=== PATIENT | female | born 1985 | race Caucasian/White ===

== ENCOUNTER 2017-03-06 04:09 | Inpatient (IN) | payer BC ==
[~2017-03-06 04:09] MED LIST: PRENATAL-U CAPS1 CAP PO
[2017-03-06] MEDS ORDERED: COZAAR50 M1 PO (05:05)
[2017-03-06 05:56] LABS: EOS % 0.1 % (0-7); HCT-HEMATOCRIT 34.1 % (34.0-49.0); HGB-HEMOGLOBIN 11.9 gm/dl (12.0-15.5); IMMATURE GRANULOCYTES ABSOLUTE 0.28 tho/cmm (0-0.03); IMMATURE GRANULOCYTES PERCENT 0.9 % (0-0.3); LYMPH % 1.5 % (20-45); LYMPH ABSOLUTE COUNT 0.5 tho/cmm (0.8-4.5); MCH (MEAN CORPUSCULAR HGB) 29.8 pg (28.0-32.0); MCHC MEAN CORPUSCULAR HGB CONC 34.9 % (32.0-36.0); MCV (MEAN CELL VOLUME) 85.3 fl (82.0-96.0); MEAN PLATELET VOLUME 9.7 cmc (9.4-12.4); MONO % 1.6 % (0-12); MONOCYTE ABSOLUTE COUNT 0.5 tho/cmm (0.0-1.2); NEUTROPHIL ABSOLUTE COUNT 29.9 tho/cmm (1.6-8.0); NEUTROPHIL-AUTOMATED 29.9 tho/cmm (1.6-8.0); NEUTROPHILS % 95.9 % (40-80); PLATELET COUNT 326 tho/cmm (150-450); RED CELL DISTRIBUTION WIDTH 12.8 % (12.4-16.4); WHITE BLOOD COUNT 31.2 tho/cmm (4.0-10.0)
[2017-03-06 06:07] LABS: INR 1.2 INR (0.9-1.1); PROTHROMBIN TIME 13.9 SECONDS (9.0-13.6)
[2017-03-06 06:09] LABS: ALB/GLOB RATIO 0.9 (0.8-2.0); ALBUMIN 3.1 g/dl (3.5-5.0); ALKALINE PHOSPHATASE 78 U/L (33-138); ANION GAP 10 mmol/L (0-20); AST/SGOT 12 U/L (10-40); BILIRUBIN,TOTAL 0.4 mg/dl (0-1.5); BLOOD UREA NITROGEN 9 mg/dl (6-24); CALCIUM 8.1 mg/dl (8.5-10.5); CARBON DIOXIDE-VENOUS 24 mmol/L (22-32); CHLORIDE 111 mmol/l (96-110); CREATININE 0.67 mg/dl (0.50-1.10); GLUCOSE 154 mg/dL (70-110); PHOSPHOROUS 2.3 mg/dl (2.5-4.9); POTASSIUM 3.7 mmol/L (3.7-5.1); SODIUM 141 mmol/L (135-145); eGFR VALUE FOR BLACK >90 mL/Min
[2017-03-06 07:20] LABS: PREALBUMIN 14.4 mg/dl (20.0-40.0)
[2017-03-06 07:32] LABS: ALT/SGPT 22 U/L (12-78)
[2017-03-06 08:52] LABS: URINE BILIRUBIN NEGATIVE (NEG); URINE BLOOD NEGATIVE (NEG); URINE GLUCOSE (UA) NEGATIVE (NEG); URINE KETONE MODERATE (NEG); URINE LEUKOCYTE ESTERASE NEGATIVE (NEG); URINE NITRITE NEGATIVE (NEG); URINE PROTEIN SMALL (NEG); URINE SPECIFIC GRAVITY 1.015 (1.003-1.030)
[2017-03-06 08:53] LABS: URINE APPEARANCE CLEAR; URINE COLOR YELLOW
[2017-03-06 09:02] LABS: URINE AMORPHOUS 1+; URINE BACTERIA 1+; URINE EPITHELIAL CELLS 0-2 /[HPF] (0-10); URINE MUCUS 1+; URINE RBC 0 /[HPF] (0-5); URINE WBC 0 /[HPF] (0-5)
[2017-03-06 12:25] LABS: PROCALCITONIN 0.17 ng/ml (0.05-0.09)
[2017-03-06 17:08] LABS: BASO % 0.1 % (0-2); EOS % 1.6 % (0-7); EOSINOPHIL ABSOLUTE COUNT 0.6 tho/cmm (0.0-0.7); HCT-HEMATOCRIT 32.9 % (34.0-49.0); HGB-HEMOGLOBIN 11.6 gm/dl (12.0-15.5); IMMATURE GRANULOCYTES ABSOLUTE 0.26 tho/cmm (0-0.03); IMMATURE GRANULOCYTES PERCENT 0.7 % (0-0.3); LYMPH ABSOLUTE COUNT 1.5 tho/cmm (0.8-4.5); MCH (MEAN CORPUSCULAR HGB) 30.1 pg (28.0-32.0); MCHC MEAN CORPUSCULAR HGB CONC 35.3 % (32.0-36.0); MCV (MEAN CELL VOLUME) 85.2 fl (82.0-96.0); MEAN PLATELET VOLUME 9.5 cmc (9.4-12.4); MONO % 5.4 % (0-12); NEUTROPHIL ABSOLUTE COUNT 32.1 tho/cmm (1.6-8.0); NEUTROPHIL-AUTOMATED 32.1 tho/cmm (1.6-8.0); NEUTROPHILS % 88.2 % (40-80); PLATELET COUNT 326 tho/cmm (150-450); RED BLOOD COUNT 3.86 mil/cmm (4.00-5.20); RED CELL DISTRIBUTION WIDTH 12.8 % (12.4-16.4)
[2017-03-06 17:18] LABS: ALB/GLOB RATIO 0.9 (0.8-2.0); ALKALINE PHOSPHATASE 76 U/L (33-138); ALT/SGPT 22 U/L (12-78); ANION GAP 9 mmol/L (0-20); AST/SGOT 9 U/L (10-40); BILIRUBIN,TOTAL 0.3 mg/dl (0-1.5); BLOOD UREA NITROGEN 7 mg/dl (6-24); CALCIUM 8.2 mg/dl (8.5-10.5); CARBON DIOXIDE-VENOUS 25 mmol/L (22-32); CHLORIDE 112 mmol/l (96-110); CREATININE 0.57 mg/dl (0.50-1.10); GLUCOSE 91 mg/dL (70-110); POTASSIUM 3.4 mmol/L (3.7-5.1); SODIUM 143 mmol/L (135-145); eGFR VALUE FOR BLACK >90 mL/Min
[2017-03-06 17:27] LABS: WHITE BLOOD COUNT 36.4 tho/cmm (4.0-10.0)
[2017-03-07 04:57] LABS: BASO % 0.2 % (0-2); BASO ABSOLUTE COUNT 0.1 tho/cmm (0.0-0.2); EOS % 3.4 % (0-7); EOSINOPHIL ABSOLUTE COUNT 1.1 tho/cmm (0.0-0.7); HGB-HEMOGLOBIN 11.5 gm/dl (12.0-15.5); IMMATURE GRANULOCYTES ABSOLUTE 0.32 tho/cmm (0-0.03); LYMPH % 8.6 % (20-45); LYMPH ABSOLUTE COUNT 2.8 tho/cmm (0.8-4.5); MCH (MEAN CORPUSCULAR HGB) 29.4 pg (28.0-32.0); MCHC MEAN CORPUSCULAR HGB CONC 33.8 % (32.0-36.0); MEAN PLATELET VOLUME 9.7 cmc (9.4-12.4); MONO % 6.6 % (0-12); MONOCYTE ABSOLUTE COUNT 2.2 tho/cmm (0.0-1.2); NEUTROPHIL ABSOLUTE COUNT 26.1 tho/cmm (1.6-8.0); NEUTROPHIL-AUTOMATED 26.1 tho/cmm (1.6-8.0); NEUTROPHILS % 80.2 % (40-80); RED BLOOD COUNT 3.91 mil/cmm (4.00-5.20); RED CELL DISTRIBUTION WIDTH 13.2 % (12.4-16.4); WHITE BLOOD COUNT 32.5 tho/cmm (4.0-10.0)
[2017-03-07 05:09] LABS: ALB/GLOB RATIO 0.8 (0.8-2.0); ALBUMIN 2.6 g/dl (3.5-5.0); ALKALINE PHOSPHATASE 71 U/L (33-138); ALT/SGPT 20 U/L (12-78); BILIRUBIN,TOTAL 0.3 mg/dl (0-1.5); BLOOD UREA NITROGEN 7 mg/dl (6-24); C-REACTIVE PROTEIN 11.3 mg/dl (0-0.9); CALCIUM 7.8 mg/dl (8.5-10.5); CARBON DIOXIDE-VENOUS 23 mmol/L (22-32); CHLORIDE 111 mmol/l (96-110); CREATININE 0.65 mg/dl (0.50-1.10); GLUCOSE 87 mg/dL (70-110); PHOSPHOROUS 2.3 mg/dl (2.5-4.9); SODIUM 141 mmol/L (135-145); eGFR VALUE FOR BLACK >90 mL/Min
[2017-03-07 05:10] LABS: ANION GAP 11 mmol/L (0-20); AST/SGOT 15 U/L (10-40); POTASSIUM 3.7 mmol/L (3.7-5.1)
[2017-03-07 07:50] LABS: PLATELET COUNT 280 tho/cmm (150-450)
[2017-03-08 06:09] LABS: BASO % 0.4 % (0-2); BASO ABSOLUTE COUNT 0.1 tho/cmm (0.0-0.2); EOS % 4.1 % (0-7); EOSINOPHIL ABSOLUTE COUNT 0.7 tho/cmm (0.0-0.7); HCT-HEMATOCRIT 31.2 % (34.0-49.0); HGB-HEMOGLOBIN 10.6 gm/dl (12.0-15.5); IMMATURE GRANULOCYTES ABSOLUTE 0.37 tho/cmm (0-0.03); LYMPH % 18.2 % (20-45); LYMPH ABSOLUTE COUNT 3.3 tho/cmm (0.8-4.5); MCH (MEAN CORPUSCULAR HGB) 29.1 pg (28.0-32.0); MCV (MEAN CELL VOLUME) 85.7 fl (82.0-96.0); MEAN PLATELET VOLUME 9.3 cmc (9.4-12.4); MONO % 8.3 % (0-12); MONOCYTE ABSOLUTE COUNT 1.5 tho/cmm (0.0-1.2); NEUTROPHIL ABSOLUTE COUNT 12.2 tho/cmm (1.6-8.0); NEUTROPHIL-AUTOMATED 12.2 tho/cmm (1.6-8.0); PLATELET COUNT 307 tho/cmm (150-450); RED BLOOD COUNT 3.64 mil/cmm (4.00-5.20); WHITE BLOOD COUNT 18.2 tho/cmm (4.0-10.0)
[2017-03-08 06:25] LABS: ALB/GLOB RATIO 0.8 (0.8-2.0); ALBUMIN 2.4 g/dl (3.5-5.0); ALKALINE PHOSPHATASE 67 U/L (33-138); ALT/SGPT 22 U/L (12-78); ANION GAP 9 mmol/L (0-20); AST/SGOT 11 U/L (10-40); BILIRUBIN,TOTAL 0.3 mg/dl (0-1.5); BLOOD UREA NITROGEN 6 mg/dl (6-24); C-REACTIVE PROTEIN 10.9 mg/dl (0-0.9); CALCIUM 7.7 mg/dl (8.5-10.5); CARBON DIOXIDE-VENOUS 26 mmol/L (22-32); CHLORIDE 111 mmol/l (96-110); CREATININE 0.49 mg/dl (0.50-1.10); GLUCOSE 83 mg/dL (70-110); PHOSPHOROUS 3.2 mg/dl (2.5-4.9); POTASSIUM 3.3 mmol/L (3.7-5.1); SODIUM 143 mmol/L (135-145); eGFR VALUE FOR BLACK >90 mL/Min
[2017-03-09 06:01] LABS: BASO % 0.5 % (0-2); BASO ABSOLUTE COUNT 0.1 tho/cmm (0.0-0.2); EOS % 5.2 % (0-7); EOSINOPHIL ABSOLUTE COUNT 0.8 tho/cmm (0.0-0.7); HCT-HEMATOCRIT 30.2 % (34.0-49.0); HGB-HEMOGLOBIN 10.4 gm/dl (12.0-15.5); IMMATURE GRANULOCYTES ABSOLUTE 0.59 tho/cmm (0-0.03); IMMATURE GRANULOCYTES PERCENT 4.1 % (0-0.3); LYMPH % 30.7 % (20-45); LYMPH ABSOLUTE COUNT 4.4 tho/cmm (0.8-4.5); MCH (MEAN CORPUSCULAR HGB) 29.1 pg (28.0-32.0); MCHC MEAN CORPUSCULAR HGB CONC 34.4 % (32.0-36.0); MCV (MEAN CELL VOLUME) 84.6 fl (82.0-96.0); MEAN PLATELET VOLUME 9.2 cmc (9.4-12.4); MONOCYTE ABSOLUTE COUNT 1.2 tho/cmm (0.0-1.2); NEUTROPHIL ABSOLUTE COUNT 7.5 tho/cmm (1.6-8.0); NEUTROPHIL-AUTOMATED 7.5 tho/cmm (1.6-8.0); NEUTROPHILS % 51.5 % (40-80); PLATELET COUNT 314 tho/cmm (150-450); RED BLOOD COUNT 3.57 mil/cmm (4.00-5.20); RED CELL DISTRIBUTION WIDTH 12.7 % (12.4-16.4); WHITE BLOOD COUNT 14.5 tho/cmm (4.0-10.0)
[2017-03-09 06:21] LABS: ALB/GLOB RATIO 0.8 (0.8-2.0); ALBUMIN 2.4 g/dl (3.5-5.0); ALT/SGPT 23 U/L (12-78); ANION GAP 10 mmol/L (0-20); AST/SGOT 14 U/L (10-40); BILIRUBIN,TOTAL 0.2 mg/dl (0-1.5); BLOOD UREA NITROGEN 6 mg/dl (6-24); C-REACTIVE PROTEIN 6.7 mg/dl (0-0.9); CALCIUM 7.7 mg/dl (8.5-10.5); CARBON DIOXIDE-VENOUS 27 mmol/L (22-32); CHLORIDE 109 mmol/l (96-110); CREATININE 0.45 mg/dl (0.50-1.10); GLUCOSE 80 mg/dL (70-110); PHOSPHOROUS 3.8 mg/dl (2.5-4.9); POTASSIUM 3.6 mmol/L (3.7-5.1); SODIUM 142 mmol/L (135-145); eGFR VALUE FOR BLACK >90 mL/Min
[2017-03-09 06:22] LABS: ALKALINE PHOSPHATASE 159 U/L (33-138)
[2017-03-10 06:12] LABS: HCT-HEMATOCRIT 31.9 % (34.0-49.0); HGB-HEMOGLOBIN 10.8 gm/dl (12.0-15.5); MCHC MEAN CORPUSCULAR HGB CONC 33.9 % (32.0-36.0); MCV (MEAN CELL VOLUME) 85.8 fl (82.0-96.0); MEAN PLATELET VOLUME 9.2 cmc (9.4-12.4); NEUTROPHIL-AUTOMATED 5.1 tho/cmm (1.6-8.0); PLATELET COUNT 325 tho/cmm (150-450); RED BLOOD COUNT 3.72 mil/cmm (4.00-5.20); RED CELL DISTRIBUTION WIDTH 12.7 % (12.4-16.4); WHITE BLOOD COUNT 12.3 tho/cmm (4.0-10.0)
[2017-03-10 06:15] LABS: ALB/GLOB RATIO 0.8 (0.8-2.0); ALBUMIN 2.6 g/dl (3.5-5.0); ALKALINE PHOSPHATASE 75 U/L (33-138); ALT/SGPT 52 U/L (12-78); ANION GAP 11 mmol/L (0-20); AST/SGOT 46 U/L (10-40); BILIRUBIN,TOTAL 0.2 mg/dl (0-1.5); BLOOD UREA NITROGEN 5 mg/dl (6-24); CALCIUM 8.1 mg/dl (8.5-10.5); CARBON DIOXIDE-VENOUS 29 mmol/L (22-32); CHLORIDE 108 mmol/l (96-110); GLUCOSE 81 mg/dL (70-110); POTASSIUM 3.6 mmol/L (3.7-5.1); SODIUM 144 mmol/L (135-145); eGFR VALUE FOR BLACK >90 mL/Min
[2017-03-10 08:34] LABS: BAND % 3 % (0-20); BAND ABSOLUTE COUNT 0.4 tho/cmm (0-2.0); EOSINOPHIL % 4 % (0-7); WBC MORPHOLOGY VARIANT LYMPHS
[2017-03-11 06:42] LABS: HCT-HEMATOCRIT 32.5 % (34.0-49.0); HGB-HEMOGLOBIN 11.1 gm/dl (12.0-15.5); MCH (MEAN CORPUSCULAR HGB) 29.2 pg (28.0-32.0); MCHC MEAN CORPUSCULAR HGB CONC 34.2 % (32.0-36.0); MCV (MEAN CELL VOLUME) 85.5 fl (82.0-96.0); MEAN PLATELET VOLUME 9.1 cmc (9.4-12.4); NEUTROPHIL-AUTOMATED 5.5 tho/cmm (1.6-8.0); PLATELET COUNT 338 tho/cmm (150-450); RED CELL DISTRIBUTION WIDTH 12.5 % (12.4-16.4); WHITE BLOOD COUNT 11.4 tho/cmm (4.0-10.0)
[2017-03-11 06:51] LABS: BASO % 0.7 % (0-2); BASO ABSOLUTE COUNT 0.1 tho/cmm (0.0-0.2); EOS % 4.3 % (0-7); EOSINOPHIL ABSOLUTE COUNT 0.5 tho/cmm (0.0-0.7); IMMATURE GRANULOCYTES ABSOLUTE 0.91 tho/cmm (0-0.03); LYMPH % 29.5 % (20-45); LYMPH ABSOLUTE COUNT 3.4 tho/cmm (0.8-4.5); MONO % 9.4 % (0-12); MONOCYTE ABSOLUTE COUNT 1.1 tho/cmm (0.0-1.2); NEUTROPHIL ABSOLUTE COUNT 5.5 tho/cmm (1.6-8.0); NEUTROPHILS % 48.1 % (40-80)
[2017-03-11 06:53] LABS: ALB/GLOB RATIO 0.8 (0.8-2.0); ALBUMIN 2.8 g/dl (3.5-5.0); ALKALINE PHOSPHATASE 87 U/L (33-138); ANION GAP 10 mmol/L (0-20); BILIRUBIN,TOTAL 0.3 mg/dl (0-1.5); BLOOD UREA NITROGEN 6 mg/dl (6-24); CALCIUM 8.5 mg/dl (8.5-10.5); CARBON DIOXIDE-VENOUS 28 mmol/L (22-32); CHLORIDE 107 mmol/l (96-110); CREATININE 0.57 mg/dl (0.50-1.10); GLUCOSE 87 mg/dL (70-110); POTASSIUM 3.7 mmol/L (3.7-5.1); SODIUM 141 mmol/L (135-145); eGFR VALUE FOR BLACK >90 mL/Min
[2017-03-11] MEDS ORDERED: BENADRYL25 M3 PO (07:02)
[2017-03-11] MEDS ORDERED: NORCO 5-325 TA1 EACH PO (07:03)
[2017-03-11] MEDS ORDERED: MOTRIN IB200 M1 PO (07:03)
[2017-03-11] MEDS ORDERED: SENOKOT-S TABL1 EACH PO (07:04)
[2017-03-11 07:39] LABS: ALT/SGPT 196 U/L (12-78); AST/SGOT 174 U/L (10-40)
== END 2017-03-11 11:40 | DRG 578 ==
LOC: BURN 04:09
PROVIDERS: Family Medicine; Surgery; ADMIT Surgery
PROC: 0HR Skin and Breast, Replacement (ICD-10-PCS; principal; 2017-03-06)
PROC: 05H533Z Insertion of Infusion Device into Right Subclavian Vein, Percutaneous Approach (ICD-10-PCS; 2017-03-06)
PROC: 0JB83ZX Excision of Abdomen Subcutaneous Tissue and Fascia, Percutaneous Approach, Diagnostic (ICD-10-PCS; 2017-03-07)
DX: L51.1 Stevens-Johnson syndrome (principal); I95.9 Hypotension, unspecified; I10 Essential (primary) hypertension; Z88.1 Allergy status to other antibiotic agents; Z88.2 Allergy status to sulfonamides; D72.829 Elevated white blood cell count, unspecified; R73.9 Hyperglycemia, unspecified; E87.6 Hypokalemia; L27.0 Generalized skin eruption due to drugs and medicaments taken internally; T36.95XA Adverse effect of unspecified systemic antibiotic, initial encounter
CPT/HCPCS: C1751; J1200; J1650; J2270; J3370; J7030; Q4136